=== PATIENT | female | born 1960 | race African-American/Black ===

== ENCOUNTER → 2017-05-24 | Day surgery (SDC) | payer OTHER ==
[~2017-05-24] MED LIST: CYCL10TA2 PO; HYDROmorphone 2 MG/ML VIAL IV PRN; IV RINGERS,LACTATED 1000ML 1,000 ML IV SCH; LIDOCAINE 1% PF 2 ML VIAL. ID PRN; LIDOCAINE 2% PF Vial for OR 5 ML VIAL. ONE; LISI1TAB3 PO; MECL25TA3 PO; MORPHINE SULFATE 2 MG/ML DISP.SYRIN. IV PRN; NAPR500T4 PO; ONDANSETRON PF 4 MG/2 ML VIAL. IV PRN; PROCHLORPERAZINE 10 MG/2 ML VIAL. IV PRN; PROPOFOL 40 ML IV ONE; TIZA4TAB PO; fentaNYL PF VIAL 100 MCG/2 ML VIAL IV PRN
[2017-05-24 12:45] VITALS: BP 122/75
== END | disposition home or self-care (01) ==
LOC: ENDOS 10:58
PROVIDERS: ATTEND Internal Medicine Gastroenterology
DX: Z12.11 Encounter for screening for malignant neoplasm of colon (principal); K64.0 First degree hemorrhoids; F17.200 Nicotine dependence, unspecified, uncomplicated; M19.91 Primary osteoarthritis, unspecified site; Z90.710 Acquired absence of both cervix and uterus; Z98.51 Tubal ligation status; Z87.39 Personal history of other diseases of the musculoskeletal system and connective tissue; Z88.0 Allergy status to penicillin; Z72.89 Other problems related to lifestyle
CPT/HCPCS: 45378; J2704; J2001

== ENCOUNTER → 2017-08-27 | Outpatient (CLI) | payer OTHER | END | disposition home or self-care (01) | LOC: PNCL 13:15 | DX: M50.30 Other cervical disc degeneration, unspecified cervical region (principal); I10 Essential (primary) hypertension; M47.892 Other spondylosis, cervical region; Z87.891 Personal history of nicotine dependence | CPT/HCPCS: 99214 ==

== ENCOUNTER → 2019-02-24 | Day surgery (SDC) | payer OTHER, MEDICAID ==
[~2019-02-24] MED LIST changes: +GABA300C18 PO; -HYDROmorphone 2 MG/ML VIAL IV PRN; -LIDOCAINE 1% PF 2 ML VIAL. ID PRN; -LIDOCAINE 2% PF Vial for OR 5 ML VIAL. ONE; -MORPHINE SULFATE 2 MG/ML DISP.SYRIN. IV PRN; +NAPR-514 PO; -NAPR500T4 PO; -ONDANSETRON PF 4 MG/2 ML VIAL. IV PRN; +PANT20TA2 PO; -PROCHLORPERAZINE 10 MG/2 ML VIAL. IV PRN; +PROPOFOL 20 ML IV ONE; -PROPOFOL 40 ML IV ONE; -TIZA4TAB PO; +TIZA4TAB2 PO; -fentaNYL PF VIAL 100 MCG/2 ML VIAL IV PRN
--- NOTE | 2019-02-24 14:07 | PDOC4 ---
PROCEDURE Procedure EGD/biopsies Indication: Abdominal pain/dyspepsia, antisecretory-responsive Meds: per anesthesia Findings: E--mild distal esophagitis G--antral erythema, biopsied. D--normal to second portion. Aisha. well. IMP: GERD Antral erythema REC: Await biopsies. Will suggest using her antisecretory daily. F/u in 2 weeks. JEET VINES MD Feb 24, 2019 14:07
[2019-02-24 14:27] VITALS: BP 134/64
--- NOTE | 2019-02-25 16:06 | PATHOLOGY ---
[facility] Accession Number: [id number] . 01 Material submitted: . stomach - ANTRAL BIOPSY . 01 Clinical history: . Abdominal pain . 02 Diagnosis: Gastric biopsies, antrum: - Chronic gastritis, mild. (JPM:[facility] 02/25/2019) P/02/25/2019 . 02 Comment: Sections of the gastric antral biopsy show congestion and mild chronic inflammation. A properly controlled immunoperoxidase stain for Helicobacter is negative for Helicobacter organisms. There is no evidence of malignancy. (JPM:[facility] 02/25/2019) . Special stain performed: Immunoperoxidase for Helicobacter . 02 Electronically signed: . Altaf Guevara MD, Pathologist NPI- [id number] . 01 Gross description: . Received in formalin labeled "[place], Letty, antral BX," are 2 segments of coulter soft tissue measuring 0.8 x 0.2 x 0.2 cm in aggregate dimensions and ranging from 0.3 to 0.5 cm in maximum dimension. The specimen is submitted entirely in cassette A1. (TSD; 02/24/2019) TOB/TOB . 02 Pathologist provided ICD-10: K29.50 . 02 CPT . 115892, U00081 Specimen Comment: A courtesy copy of this report has been sent to Specimen Comment: [phone], . Specimen Comment: Report sent to / DR ROONEY Performed at: 01 [facility] [address], [place] [id number] MD Ayaan More MD Phone: [phone] Performed at: 02 [facility] [address] [place], [place] [id number] MD Altaf Guevara MD Phone: [phone]
== END ==
LOC: ENDOS 13:15
PROVIDERS: ATTEND Internal Medicine Gastroenterology
DX: K29.50 Unspecified chronic gastritis without bleeding (principal); K21.0 Gastro-esophageal reflux disease with esophagitis; I10 Essential (primary) hypertension; Z88.0 Allergy status to penicillin; Z88.8 Allergy status to other drugs, medicaments and biological substances; Z98.890 Other specified postprocedural states; Z72.0 Tobacco use
CPT/HCPCS: 43239; J2704